=== PATIENT | female | born 1950 | race Caucasian/White ===

== ENCOUNTER 2021-10-25 00:12 | Emergency (ER) | payer OTHER, MEDICAID ==
[~2021-10-25] VITALS: Ht 162.6 cm; Wt 70.0 kg
[2021-10-25] MEDS ORDERED: ENALAPRIL 2.5MG/2ML VIAL 2ML IV ONE (01:00)
[2021-10-25] MEDS ORDERED: ENALAPRIL 1.25MG/ML VIAL 1ML IV NR (01:00)
[2021-10-25 01:01] LABS: EOSINOPHILS % 1.9 % (0.0-5.0); HEMATOCRIT. 39.2 % (36.0-48.0); HEMOGLOBIN. 13.1 g/dL (12.0-16.0); MEAN CORPUSCULAR HEMOGLOBIN 30.4 pg (28.0-32.0); MEAN CORPUSCULAR VOLUME 91.3 fL (81.0-99.0); MEAN PLATELET VOLUME 9.4 fl (7.4-10.4); NEUTROPHILS % 54.1 % (40.0-76.0); PLATELET 186 x1000/uL (130-400); RED CELL DISTRIBUTION WIDTH 13.4 % (11.6-14.6)
[2021-10-25 01:04] LABS: CHLORIDE 105 mEq/L (98-107)
[2021-10-25] MEDS ORDERED: HYDRALAZINE 20MG/ML VIAL IV NR (03:00)
[2021-10-25] MEDS ORDERED: ENAL10TA71 MT (05:06)
[2021-10-25 05:38] VITALS: BP 135/60
== END 2021-10-25 05:40 | disposition home or self-care (01) ==
LOC: ER 00:12 → CANBEDREQ 07:16
DX: I10 Essential (primary) hypertension (principal); R42 Dizziness and giddiness; Z86.73 Personal history of transient ischemic attack (TIA), and cerebral infarction without residual deficits
CPT/HCPCS: 36415; 70450; 71045; 80053; 84484; 85025; 93005; 96374; 96375; 99285; J0360; J3490